=== PATIENT | male | born 1975 | race African-American/Black ===

== ENCOUNTER 2024-11-22 00:05 | Emergency (ER) | payer SELFPAY ==
--- OUTSIDE RECORDS SUMMARY | 2024-11-22 00:13 | XMS REPORT | Continuity of Care Document ---
Author Name Unknown Address [address] [facility] [phone] [facility] [place] Address [address] [facility] [phone] Care Team Providers Care It Software Engineer Name Role Phone MARIAM WOOD Attending Clinician Unavailab le Payers Payer Name Policy Type Policy Number Effective Date Expirati on Date Source [facility] [place] [facility] 9 [id number] 2023 00:00:00 Problems Condition Name Condition Details Condition Category Status Onset Date Resolution Date Last Treatment Date Treating Clinician Comments Source Encounter for screening for diabetes mellitus Encounter for screening for diabetes mellitus Disease Active 05-14 00:00: 00 Belen ocasio Class 3 severe obesity due to excess calories without serious comorbidit y with body mass index (BMI) of 40.0 to 44.9 in adult Class 3 severe obesity due to excess calories without serious comorbidit y with body mass index (BMI) of 40.0 to 44.9 in adult Disease Active 05-14 00:00: 00 Belen ocasio Social History Social Habit Start Date Stop Date Quantity Comments Source Sexual orientation Avinash Duffy - External Alcohol intake 2023-05-14 00:00:00 2023-05-14 00:00:00 Current drinker of alcohol (finding) Belen Duffy - External History of Social function 2023-05-14 00:00:00 2023-05-14 00:00:00 Belen Duffy - External Tobacco Comment 2023-05-14 00:00:00 2023-05-14 00:00:00 1 cigar once a month Belen Duffy - External Alcohol Comment 2023-05-14 00:00:00 2023-05-14 00:00:00 ocassional Belen Olivia Sex Ass[birth year] At 1975 00:00:00 1975 00:[birth year]:00 Belen Andersonjennifer - External Smoking Status Start Date Stop Date Source Never smoked tobacco Belen Duffy - External Medications Ordered Medication Name Filled Medication Name Start Date Stop Date Current Medication? Ordering Clinician Indication Dosage Frequency Signature (SIG) Comments Components Source Amlodipine Besylate (NORVASC) 5 MG oral Tablet 05-14 00:00: 00 Yes [id number] 5mg Take 1 tablet (5 mg total) by mouth daily. Belen Duffy - Externa l Pantoprazol e Sodium 40 MG oral Tablet Delayed Response 05-14 00:00: 00 Yes [id number] 40mg Take 1 tablet (40 mg total) by mouth daily. Belen Thomasa l Immunizations Ordered Immunization Name Filled Immunization Name Date Status Comments Source Td (adult) Unknown Completed Belen carl - External Tdap- (Boostrix, Adacel) Unknown Completed Belen Duffy - External Vital Signs Vital Name Observation Time Observation Value Comments S ource Systolic blood pressure 2023-05-14 17:11:00 148 mm[Hg] Belen kennedy ld - External Diastolic blood pressure 2023-05-14 17:11:00 90 mm[Hg] Belen Munoz ld - External Heart rate 2023-05-14 17:11:00 82 /min Anca Duffy - External Body temperature 2023-05-14 17:11:00 36.5 Cathy Belen Andersonjennifer - External Respiratory rate 2023-05-14 17:11:00 14 /min Belen Duffy - External Body height 2023-05-14 17:11:00 172.7 cm Maddie Duffy - External Body weight 2023-05-14 17:11:00 121.564 kg Maddie Andersonjennifer - External BMI 2023-05-14 17:11:00 40.75 kg/m2 Maddie Andersonold - External Encounters Start Date/Time End Date/Time Encounter Type Admission Type Attending Clinicians Care Facility Care Department Encounter ID Source 2023-07-23 00:00:00 2023-07-23 00:00:00 Outpatient MARIAM WOOD [id number] Belen Duffy 2023-05-14 11:30:00 2023-05-14 11:30:00 Outpatient MARIAM WOOD [id number] Belen Duffy 2022-08-30 08:08:47 2022-08-30 08:08:47 Outpatient [facility] [id number] Nelson Kilpatrick Antonio 2022-08-24 08:10:07 2022-08-24 08:10:07 Outpatient [facility] [id number] Nelson Kilpatrick Antonio 2022-08-23 16:43:16 2022-08-23 16:43:16 Outpatient [facility] [id number] Nelson Alvarez Results Test Description Test Time Test Comments Results Result Co mments Source COMPREHENSIVE METABOLIC [id number] 07:26:43* Test Item Value Reference Range Interpretation Comme nts GLUCOSE (test code = 2217) 104 MG/DL 70-99 H BUN (test code = 2208) 11 MG/DL 6-20 CREATININE (test code = 2214) 1.09 MG/DL 0.80-1.40 eGFR (2020 CKD-EPI) (test code = 50410) 84 ML/MIN/1.73 >60 CALC BUN/CREAT (test code = 2235) 10 RATIO 6-28 SODIUM (test code = 2231) 144 MEQ/L 133-146 POTASSIUM (test code = 2228) 4.4 MEQ/L 3.5-5.4 CHLORIDE (test code = 2215) 106 MEQ/L 95-107 CARBON DIOXIDE (test code = 2206) 27 MEQ/L 19-31 CALCIUM (test code = 2209) 9.4 MG/DL 8.5-10.5 PROTEIN, TOTAL (test code = 2229) 7.3 G/DL 6.1-8.3 ALBUMIN (test code = 2201) 4.3 G/DL 3.5-5.2 CALC GLOBULIN (test code = 2240) 3.0 G/DL 1.9-3.7 CALC A/G RATIO (test code = 2234) 1.4 RATIO 1.0-2.6 BILIRUBIN, TOTAL (test code = 2207) 0.7 MG/DL See_Comment [Automated me ssage] The system which generated this result transmitted reference range: <=1.2. The reference range was not used to interpret this result as normal/abnormal. ALKALINE PHOSPHATASE (test code = 2204) 123 U/L 40-118 H AST (test code = 2218) 27 U/L 9-50 ALT (test code = 2219) 40 U/L 5-50 UNLESS OTHERWISE INDICATED, ALL TESTING PERFORMED AT [facility] [address] [place] [address] PAYMENT SPECIALIST: AMIE TEMPLE M.D. [place] NUMBER [id number] [facility] [place] [id number] HEMOGLOBIN [id number] 05:34:33* Test Item Value Reference Range Interpretation Comme nts HEMOGLOBIN A1c (test code = 49816) 5.8 % 4.2-5.6 H [employer] GUIDELINES FOR HGB A1C: PREDIABETES/INCREASED RISK . . . . . . . 5.7-6.4% DIAGNOSIS OF DIABETES . . . . . . . . . >=6.5% WITH CONFIRMATION OR APPROPRIATE SYMPTOMS NOTE: ASSAY MAY BE AFFECTED BY HEMOGLOBINOPATHIES (SICKLE CELL ANEMIA, S-C DISEASE, OTHERS) OR ARTIFICIALLY LOWERED BY DECREASED RED CELL SURVIVAL (HEMOLYTIC ANEMIAS, BLOOD LOSS, ETC.). CONSIDER ALTERNATE TESTING OR LABORATORY CONSULTATION. Notes Date/Time Note Provider Source 2023-05-14 11:16:31 Chief Complaint Patient presents with Physical Patient is not fasting. Reflux Nargis French MA II [facility]
[2024-11-22] MEDS ORDERED: MORPHINE 4 MG/ML SYR ONE (00:31)
[2024-11-22] MEDS ORDERED: DIPHENHYDRAMINE 50 MG/ML VIAL ONE (00:31)
[2024-11-22] MEDS ORDERED: METOCLOPRAMIDE 10 MG/2mL INJ ONE (00:31)
[2024-11-22] MEDS ORDERED: NA CHLORIDE 0.9% 1,000 ML ONE (00:31)
[2024-11-22 00:42] LABS: Absolute Lymphocytes (CBC) 2.0 K/uL (0.7-4.9); Hematocrit 42.9 % (39.6-49.0); Hemoglobin 14.5 g/dL (13.6-17.9); MCH 29.6 pg (27.0-35.0); MCHC 33.8 g/dL (32.0-36.0); MCV 87.6 fL (80-100); MPV 7.7 fL (7.6-11.3); Nucleated RBC Absolute Count 0.0 (0-0); Nucleated Red Blood Cells % 0.0 % (0-0); RBC Red Blood Cell Count 4.90 M/uL (4.33-5.43); White Blood Count 7.50 thou/uL (4.3-10.9)
[2024-11-22 00:49] LABS: PT Prothrombin Time 12.6 SECONDS (10-13.0); Protime INR 1.12
[2024-11-22 01:30] LABS: ALT/SGPT 36 U/L (16-61); AST/SGOT 18 U/L (15-37); Albumin 3.3 g/dL (3.4-5.0); Albumin/Globulin Ratio 0.8 (1.1-1.8); Alkaline Phosphatase 95 U/L (45-117); Anion Gap 9.9 mEq/L (5.0-15.0); BUN Blood Urea Nitrogen 11 mg/dL (7-18); Globulin 3.9 g/dL (2.3-3.5); Glucose Level 140 mg/dL (74-106); Magnesium 1.8 mg/dL (1.6-2.4); Potassium 2.9 mEq/L (3.5-5.1); Troponin High Sensitivity 12.2 pg/mL (<58.9)
[2024-11-22 01:34] LABS: Bilirubin Indirect, Calculated 0.4 mg/dL (0.2-0.8)
[2024-11-22] MEDS ORDERED: POTASSIUM 25 MEQ EFFERV TAB ONE (03:17)
[2024-11-22] MEDS ORDERED: KETOROLAC 30 MG/ML INJ ONE (03:24)
--- NOTE | 2024-11-22 03:44 | EDPHYS ---
Physician Documentation [facility] Name: Cooper Baez Jr Age: 48 yrs Sex: Male : 1975 Arrival Date: 11/22/2024 Time: 00:05 Bed 18 Private MD: ED Physician Magan Rivas HPI: 11/22 00:25 This 48 yrs old Male presents to ER via Ambulatory with complaints of Headache, High cp Blood Pressure. 00:25 The patient complains of pain to the top of head, forehead, right jehovah's witness and left cp jehovah's witness. The patient describes the headache as aching, constant. Onset: The symptoms/episode began/occurred 1 day(s) ago. Associated signs and symptoms: Pertinent positives: nausea. 00:25 Severity of symptoms: in the emergency department the pain is unchanged, despite home cp interventions. 00:25 Headache History: The patient has had previous headaches and this one is different than cp previous episodes. Historical: - Allergies: 00:19 No Known Allergies; br2 - Home Meds: 00:19 None [Active]; br2 - PSHx: 00:19 None; br2 - Immunization history:: Adult Immunizations not up to date. - Infectious Disease History:: Denies. - Social history:: Smoking status: Patient denies any tobacco usage or history of. ROS: 00:30 Constitutional: Negative for body aches, chills, fever, poor PO intake, cp 00:30 Eyes: Negative for injury, pain, redness, and discharge, cp 00:30 Cardiovascular: Negative for chest pain, edema, palpitations, 00:30 Respiratory: Negative for cough, shortness of breath, wheezing, 00:30 Abdomen/GI: Positive for nausea, Negative for vomiting, diarrhea, constipation, 00:30 Neuro: Positive for headache, Negative for altered mental status, syncope, near syncope, weakness, 00:30 All other systems are negative, cp Exam: 00:30 Head/Face: Normocephalic, atraumatic. cp 00:30 Constitutional: The patient appears in no acute distress, alert, awake, non-diaphoretic, non-toxic, well developed, well nourished, obese, uncomfortable, 00:30 Eyes: Periorbital structures: appear normal, Pupils: equal, round, and reactive to light and accomodation, Extraocular movements: intact throughout, Conjunctiva: normal, no exudate, no injection, Sclera: no appreciated abnormality, Lids and lashes: appear normal, bilaterally, 00:30 ENT: External ear(s): are unremarkable, Nose: External nose: no obvious acute abnormality, Mouth: Lips: moist, Oral mucosa: moist, Posterior pharynx: Airway: no evidence of obstruction, patent, erythema, is not appreciated, exudate, is not appreciated, 00:30 Neck: ROM/movement: is normal, is supple, without pain, no range of motions limitations, 00:30 Chest/axilla: Inspection: normal, Palpation: is normal, no crepitus, no tenderness, 00:30 Cardiovascular: Rate: normal, Rhythm: regular, Edema: is not appreciated, JVD: is not appreciated, 00:30 Respiratory: the patient does not display signs of respiratory distress, Respirations: normal, no use of accessory muscles, no retractions, labored breathing, is not present, Breath sounds: are clear throughout, no decreased breath sounds, no stridor, no wheezing, 00:30 Abdomen/GI: Inspection: obese Palpation: abdomen is soft and non-tender, in all quadrants, 00:33 ECG was reviewed by the Attending Physician. cp Vital Signs: 00:16 BP 169 / 106; Pulse 78; Resp 18 S; Temp 97.1(TE); Pulse Ox 99% on R/A; Weight 108.86 br2 kg; Height 5 ft. 8 in. ; Pain 10/10; 00:18 BP 162 / 96; Pulse 77; Resp 17; Pulse Ox 97% ; Pain 10/10; bm8 01:24 BP 150 / 99; Pulse 74; Resp 17; Temp 97.1; Pulse Ox 95% ; Pain 8/10; bm8 02:51 BP 146 / 101; Pulse 71; Resp 17; Temp 97.1; Pulse Ox 100% ; Pain 3/10; bm8 03:46 BP 142 / 97; Pulse 73; Resp 17; Temp 97.1; Pulse Ox 95% ; Pain 3/10; bm8 00:16 Body Mass Index 36.49 (108.86 kg, 172.72 cm) br2 00:16 Pain Scale: Adult br2 00:18 Pain Scale: Adult bm8 01:24 Pain Scale: Adult bm8 02:51 Pain Scale: Adult bm8 03:46 Pain Scale: Adult bm8 Kings[place] Coma Score: 00:18 Eye Response: spontaneous(4). Motor Response: obeys commands(6). Verbal Response: bm8 oriented(5). Total: 15. 01:24 Eye Response: to voice(3). Motor Response: obeys commands(6). Verbal Response: bm8 oriented(5). Total: 14. 02:51 Eye Response: spontaneous(4). Motor Response: obeys commands(6). Verbal Response: bm8 oriented(5). Total: 15. 03:46 Eye Response: spontaneous(4). Motor Response: obeys commands(6). Verbal Response: bm8 oriented(5). Total: 15. MDM: 00:13 Medical Screening Exam initiated cp 02:41 Transition of care: [place] [facility] [place] Differential diagnosis: hypertensive headache, intracerebral hemorrhage, migraine, ms3 tension headache. Data reviewed: vital signs, nurses notes, lab test result(s), radiologic studies. 03:44 I considered the following discharge prescriptions or medication management in [place] [facility] [place] Medications were administered in the Emergency Department. See MAR. Independent interpretation of the following test(s) in the Emergency Department X-Ray: My interpretation is Chest x-ray image reviewed by me did not reveal pneumonia. Counseling: I had a detailed discussion with the patient and/or guardian regarding the historical points, exam findings, and any diagnostic results supporting the discharge/admit diagnosis, lab results, radiology results, the need for outpatient follow up, to return to the emergency department if symptoms worsen or persist or if there are any questions or concerns that arise at home. Special discussion: I discussed with the patient/guardian in detail that at this point there is no indication for admission to the hospital. It is understood, however, that if the symptoms persist or worsen the patient needs to return immediately for re-evaluation. ED course: Discussed labs, chest x-ray, CT head results with patient. Patient to follow-up with primary care physician in 2 to 3 days. Patient understands and agrees with plan. All questions were answered. Return precautions discussed include worsening symptoms, or any other concerns. On reevaluation patient is alert and oriented x 4, no apparent distress, nontoxic-appearing, speaking full sentences. Patient states his symptoms have improved since arrival to the emergency department.. 08 00:21 Order name: Basic Metabolic Panel; Complete Time: 01:34 cp 08/16 01:34 Interpretation: Normal except: K 2.9; GLUC 140; GFR 82. cp 16 00:21 Order name: CBC with Diff; Complete Time: 01:34 cp 16 00:21 Order name: LFT's; Complete Time: :34 cp 11/22 01:35 Interpretation: Normal except: ALB 3.3; GLOB 3.9; A/G 0.8. cp 08 00:21 Order name: Magnesium; Complete Time: :34 cp 11/22 00:21 Order name: PT-INR; Complete Time: :34 cp 11/22 00:21 Order name: Troponin HS; Complete Time: :34 cp 11/22 00:21 Order name: CT Head Brain wo Cont cp 08 00:21 Order name: XRAY Chest (1 view) cp 11/22 00:21 Order name: Cardiac monitoring; Complete Time: 00:43 cp 11/22 00:21 Order name: EKG - Nurse/Tech; Complete Time: 00:43 cp 11/22 00:21 Order name: IV Saline Lock; Complete Time: 00:43 cp 11/22 00:21 Order name: Labs collected and sent; Complete Time: 00:43 cp 11/22 00:21 Order name: O2 Per Protocol; Complete Time: 00:43 cp 11/22 00:21 Order name: O2 Sat Monitoring; Complete Time: 00:43 cp EC:33 Rate is 63 beats/min. Rhythm is regular. IA interval is prolonged at 222 msec. QRS cp interval is prolonged at 106 msec. QT interval is normal. T waves are Inverted in lead aVR. Interpreted by me. Reviewed by me. Administered Medications: 00:42 Drug: morphine IVP or IV 4 mg IVP once over 4 mins Route: IVP; Infused Over: 4 mins; bm8 Site: left antecubital; Follow up: Response: No adverse reaction bm8 00:43 Drug: NS 0.9% IV 1000 ml IV at 1 bolus Per protocol; to be given as a bolus over 60 bm8 minutes Route: IV; Rate: 1 bolus; Site: left antecubital; 01:26 Follow up: Response: No adverse reaction; IV Status: Completed infusion bm8 00:43 Drug: metoCLOPramide IVP 10 mg IVP once; over 1 to 2 minutes Route: IVP; Site: left bm8 antecubital; 01:26 Follow up: Response: No adverse reaction bm8 00:43 Drug: diphenhydrAMINE IVP 12.5 mg IVP once Route: IVP; Site: left antecubital; bm8 01:26 Follow up: Response: No adverse reaction bm8 01:51 Drug: Lisinopril PO 20 mg PO once Route: PO; bm8 02:52 Follow up: Response: No adverse reaction bm8 03:21 Drug: Potassium PO Effervescent Tablet 50 mEq PO once; dissolve in 4 ounces of water or bm8 juice Route: PO; 03:47 Follow up: Response: No adverse reaction bm8 03:26 Drug: Ketorolac IVP 10 mg 10 mg IVP once Route: IVP; Site: left antecubital; bm8 03:47 Follow up: Response: No adverse reaction bm8 Disposition: 02:16 I was immediately available on-site in the Emergency Department for consultation in the ms3 care of the patient. Disposition Summary: 11/22/24 03:43 Discharge Ordered Notes: Location: Home ms3 Problem: new ms3 Symptoms: have improved ms3 Condition: Stable ms3 Diagnosis - Hypertensive heart disease without heart failure ms3 - Hyperglycemia, unspecified ms3 - Headache ms3 Followup: cp - With: Private Physician - When: 1 week - Reason: Recheck today's complaints Discharge Instructions: - Discharge Summary Sheet cp - High-Fiber Eating Plan cp - Hyperglycemia cp - Hypertension, Adult cp - Aspirin and Your Heart cp - Form - Blood Pressure Record Sheet cp - How to Take Your Blood Pressure cp Forms: - Medication Reconciliation Form ms3 - Antibiotic Education ms3 - Prescription Opioid Use ms3 - Patient Portal Instructions ms3 - Leadership Thank You Letter ms3 Prescriptions: - Lisinopril 10 mg Oral Tablet - take 1 tablet ORAL route once daily; 20 tablet; Refills: 0, Product Selection ms3 Permitted Signatures: Dispatcher [employer] EDW[place] David Monson PA PA cp Sims, Marcus, DO DO ms3 Joseph Anton RN RN bm8 Leah Paula RN RN br2 Corrections: (The following items were deleted from the chart) 00:22 00:22 Head Brain Wo Cont+CT.RAD.BRZ ordered. EDMS EDMS 00: 00:22 BASIC METABOLIC PANEL+C.LAB.BRZ ordered. EDMS EDMS 00: 00:22 CBC+H.LAB.BRZ ordered. EDMS EDMS 00: 00:22 HEPATIC FUNCTION+C.LAB.BRZ ordered. EDMS EDMS 00: 00:22 MAGNESIUM+C.LAB.BRZ ordered. EDMS EDMS 00: 00:22 PROTIME (+INR)+COAG.LAB.BRZ ordered. EDMS EDMS 00: 00:22 Troponin High Sensitivity+C.LAB.BRZ ordered. EDMS EDMS 00: 00:22 Chest Single View+RAD.RAD.BRZ ordered. EDMS EDMS
--- NOTE | 2024-11-22 03:44 | ER ---
Nurse's Notes [facility] Name: Cooper Baez Jr Age: 48 yrs Sex: Male : 1975 Arrival Date: 11/22/2024 Time: 00:05 Bed 18 Private MD: Diagnosis: Hypertensive heart disease without heart failure;Hyperglycemia, unspecified;Headache Presentation: 11/22 00:16 Chief complaint: Patient states: PT C/O MIGRAINE SINCE YESTERDAY FRONTAL AREA...BLURRED br2 VISION, NAUSEA, DIZZY, CONSTANT. PT TOOK IBUPROFEN 600MG AT 1630 BUT DIDN'T HELP. PT HAS HTN BUT HASN'T TAKEN MEDS IN OVER 1 YEAR. Coronavirus screen: Client denies travel out of the [place] in the last 14 days. Ebola Screen: Patient denies exposure to infectious person. 00:16 Method Of Arrival: Ambulatory br2 00:16 Initial Sepsis Screen: Does the patient meet any 2 criteria? No. Patient's initial br2 sepsis screen is negative. Does the patient have a suspected source of infection? No. Patient's initial sepsis screen is negative. Risk Assessment: Do you want to hurt yourself or someone else? Patient reports no desire to harm self or others. Onset of symptoms was November 21, 2024. 00:16 Acuity: KRISTAN 3 br2 Triage Assessment: 00:19 Headache History: Denies prior headaches. General: Appears uncomfortable, Behavior is br2 calm, cooperative. Pain: Complains of pain in top of head and forehead Pain currently is 10 out of 10 on a pain scale. Pain began 1 day ago. Also complains of nausea, BLURRED VISION AND DIZZINESS. 00:20 Headache History: Denies prior headaches. General: Appears in no apparent distress. bm8 uncomfortable, Behavior is calm, cooperative, appropriate for age. Pain: Complains of pain in top of head, forehead and left side of forehead Pain currently is 10 out of 10 on a pain scale. Pain began 1 day ago. Also complains of decreased appetite, nausea, inability to work, inability to perform activities of daily living, inability to concentrate. EENT: No deficits noted. No signs and/or symptoms were reported regarding the EENT system. Neuro: Level of Consciousness is awake, alert, obeys commands, Oriented to person, place, time, situation, Appropriate for age. Cardiovascular: Denies chest pain, Capillary refill < 3 seconds in bilateral fingers Patient's skin is warm and dry. Cardiovascular: Heart tones S1 S2 present. Respiratory: Airway is patent Respiratory effort is even, unlabored, Respiratory pattern is regular, symmetrical, Breath sounds are clear bilaterally. GI: No signs and/or symptoms were reported involving the gastrointestinal system. : No signs and/or symptoms were reported regarding the genitourinary system. Derm: No signs and/or symptoms reported regarding the dermatologic system. Musculoskeletal: No signs and/or symptoms reported regarding the musculoskeletal system. Historical: - Allergies: 00:19 No Known Allergies; br2 - Home Meds: 00:19 None [Active]; br2 - PSHx: 00:19 None; br2 - Immunization history:: Adult Immunizations not up to date. - Infectious Disease History:: Denies. - Social history:: Smoking status: Patient denies any tobacco usage or history of. Screenin:18 [facility] ED Fall Risk Assessment (Adult) History of falling in the last 3 months, bm8 including since admission No falls in past 3 months (0 pts) Confusion or Disorientation No (0 pts) Intoxicated or Sedated No (0 pts) Impaired Gait No (0 pts) Mobility Assist Device Used No (0 pt) Altered Elimination No (0 pt) Score/Fall Risk Level 0 - 2 = Low Risk Oriented to surroundings, Maintained a safe environment, Educated pt \T\ family on fall prevention, incl call for assistance when getting out of bed, Assessed \T\ reinforced patient's understanding of fall precautions, Hourly rounding (assess needs \T\ fall precautionary measures) done, Used ambulatory aids as needed (educated on \T\ assisted with), Used gait belt as appropriate. Abuse screen: Denies threats or abuse. Nutritional screening: No deficits noted. Tuberculosis screening: No symptoms or risk factors identified. Assessment: 01:24 Reassessment: Patient appears in no apparent distress at this time. Patient and/or bm8 family updated on plan of care and expected duration. Pain level reassessed. Patient is alert, oriented x 3, equal unlabored respirations, skin warm/dry/pink. Patient states feeling better. Patient states symptoms have improved. Reassessment: pt is resting with eyes closed breathing is even unlabored with symmetrical rise and fall of chest. NAD at this time. pt is easy to waken. Pain: Pain currently is 8 out of 10 on a pain scale. 02:51 Reassessment: Patient appears in no apparent distress at this time. Patient and/or bm8 family updated on plan of care and expected duration. Pain level reassessed. Patient is alert, oriented x 3, equal unlabored respirations, skin warm/dry/pink. Patient states feeling better. Patient states symptoms have improved. Pain: Pain currently is 3 out of 10 on a pain scale. 03:46 Reassessment: Patient appears in no apparent distress at this time. Patient and/or bm8 family updated on plan of care and expected duration. Pain level reassessed. Patient is alert, oriented x 3, equal unlabored respirations, skin warm/dry/pink. Patient states feeling better. Patient states symptoms have improved. Vital Signs: 00:16 BP 169 / 106; Pulse 78; Resp 18 S; Temp 97.1(TE); Pulse Ox 99% on R/A; Weight 108.86 br2 kg; Height 5 ft. 8 in. ; Pain 10/10; 00:18 BP 162 / 96; Pulse 77; Resp 17; Pulse Ox 97% ; Pain 10/10; bm8 01:24 BP 150 / 99; Pulse 74; Resp 17; Temp 97.1; Pulse Ox 95% ; Pain 8/10; bm8 02:51 BP 146 / 101; Pulse 71; Resp 17; Temp 97.1; Pulse Ox 100% ; Pain 3/10; bm8 03:46 BP 142 / 97; Pulse 73; Resp 17; Temp 97.1; Pulse Ox 95% ; Pain 3/10; bm8 00:16 Body Mass Index 36.49 (108.86 kg, 172.72 cm) br2 00:16 Pain Scale: Adult br2 00:18 Pain Scale: Adult bm8 01:24 Pain Scale: Adult bm8 02:51 Pain Scale: Adult bm8 03:46 Pain Scale: Adult bm8 Yasmin Coma Score: 00:18 Eye Response: spontaneous(4). Motor Response: obeys commands(6). Verbal Response: bm8 oriented(5). Total: 15. 01:24 Eye Response: to voice(3). Motor Response: obeys commands(6). Verbal Response: bm8 oriented(5). Total: 14. 02:51 Eye Response: spontaneous(4). Motor Response: obeys commands(6). Verbal Response: bm8 oriented(5). Total: 15. 03:46 Eye Response: spontaneous(4). Motor Response: obeys commands(6). Verbal Response: bm8 oriented(5). Total: 15. ED Course: 00:09 Patient arrived in ED. jj6 00:13 Joseph Anton, RN is Primary Nurse. bm8 00:13 David Monson PA is PHCP. cp 00:13 Magan Rivas DO is Attending Physician. cp 00:18 Patient has correct armband on for positive identification. Bed in low position. Call bm8 light in reach. Side rails up X 1. Adult w/ patient. Client placed on continuous cardiac and pulse oximetry monitoring. NIBP monitoring applied. Pulse ox on. NIBP on. Door closed. Noise minimized. Verbal reassurance given. Head of bed elevated. 00:18 No provider procedures requiring assistance completed. Patient maintains SpO2 bm8 saturation greater than 95% on room air. 00:19 Triage completed. br2 00:20 Arm band placed on right wrist. bm8 00:37 Initial lab(s) drawn, by me, sent to lab. Inserted saline lock: 20 gauge in left zm antecubital area, using aseptic technique. Blood collected. Flushed with 10 mL NS. 01:07 CT Head Brain wo Cont In Process Unspecified. EDMS 02:31 XRAY Chest (1 view) In Process Unspecified. EDMS 03:46 Provided Education on: post er care. bm8 03:46 IV discontinued, intact, bleeding controlled, No redness/swelling at site. Pressure bm8 dressing applied. Administered Medications: 00:42 Drug: morphine IVP or IV 4 mg IVP once over 4 mins Route: IVP; Infused Over: 4 mins; bm8 Site: left antecubital; : Follow up: Response: No adverse reaction bm8 00:43 Drug: NS 0.9% IV 1000 ml IV at 1 bolus Per protocol; to be given as a bolus over 60 bm8 minutes Route: IV; Rate: 1 bolus; Site: left antecubital; : Follow up: Response: No adverse reaction; IV Status: Completed infusion bm8 00:43 Drug: metoCLOPramide IVP 10 mg IVP once; over 1 to 2 minutes Route: IVP; Site: left bm8 antecubital; 01:26 Follow up: Response: No adverse reaction bm8 00:43 Drug: diphenhydrAMINE IVP 12.5 mg IVP once Route: IVP; Site: left antecubital; bm8 01:26 Follow up: Response: No adverse reaction bm8 01:51 Drug: Lisinopril PO 20 mg PO once Route: PO; bm8 02:52 Follow up: Response: No adverse reaction bm8 03:21 Drug: Potassium PO Effervescent Tablet 50 mEq PO once; dissolve in 4 ounces of water or bm8 juice Route: PO; 03:47 Follow up: Response: No adverse reaction bm8 03:26 Drug: Ketorolac IVP 10 mg 10 mg IVP once Route: IVP; Site: left antecubital; bm8 03:47 Follow up: Response: No adverse reaction bm8 Medication: 00:18 VIS not applicable for this client. bm8 Outcome: 03:43 Discharge ordered by . ms3 03:46 Discharged to home ambulatory, with family, bm8 03:46 Condition: stable 03:46 Discharge instructions given to patient, family, Instructed on discharge instructions, follow up and referral plans. no drinking with medication, no driving heavy equipment, medication usage, safety practices, Demonstrated understanding of instructions, follow-up care, medications, 03:48 Prescriptions given X 1, bm8 03:55 Patient left the ED. bm8 Signatures: Dispatcher [employer] EDMS David Monson PA PA cp Sims, Marcus, DO DO ms3 Alisa Olmedo jj6 Larissa Mccoy, RN RN Joseph Anton RN RN bm8 Leah Paula RN RN br2
--- NOTE | 2024-11-22 05:39 | RAD REPORT ---
EXAM DESCRIPTION: CT of the head without contrast CLINICAL HISTORY: HEADACHE COMPARISON: None available TECHNIQUE: Axial CT of the head obtained from the skull apex to the skull base without contrast. This exam was performed according to our departmental dose-optimization program, which includes automated exposure control, adjustment of the mA and/or kV according to patient size and/or use of it erative reconstruction technique. FINDINGS: No acute intracranial hemorrhage identified. No mass, mass effect, midline shift, or abnormal extra-a xial fluid collection. No CT evidence of acute ischemic change identified, however, MRI is more sensitive in the assessment of acute ischemia. Ventricular system and sulcal spaces are normal in s ize and morphology. Basilar cisterns are patent. Visualized orbits and globes show no acute abnormality. No skull fracture identified. Opacificati on of the left sphenoid sinus. Patchy mucosal thickening involving the ethmoid air cells, left greater than right. Minimal mucosal thickening in the right frontal sinus. Mastoid air cells are well aerated. IMPRESSION: 1. No acute intracranial abnormality on noncontrast CT. 2. Paranasal sinus disease. Electronically signed by: Nilda Panchal MD 11/22/2024 02:50 AM CDT RP Due to temporary technical issues with the PACS/[employer] reporting system, reports are being maday d by the in-house radiologist without review as a courtesy to ensure prompt reporting the interpreting radiologist is fully responsible for the content of the report. Transcribed Date/Time: 11/22/2024 5:38 AM
--- NOTE | 2024-11-22 05:55 | RAD REPORT ---
EXAM DESCRIPTION: Chest Single View CLINICAL HISTORY: htn, headache COMPARISON: None. FINDINGS: 1 view(s) of the chest. Tubes and lines: Leads overlie the chest. Cardiomediastinal silhouette: Normal size and contour. Lungs: No consolidation, pneumothorax, or pleural effusion. Bones: No acute osseous abnormality. Upper abdomen: No abnormality identified. IMPRESSION: 1. No acute pulmonary process identified. Electronically signed by: Willy Solomon DO 11/22/2024 03:36 AM CDT 4ZDM Due to temporary technical issues with the PACS/[employer] reporting system, reports are being maday d by the in-house radiologist without review as a courtesy to ensure prompt reporting the interpreting radiologist is fully responsible for the content of the report. Transcribed Date/Time: 11/22/2024 5:54 AM
[2024-11-22 09:32] VITALS: TEMP 97.1
[2024-11-22 09:38] VITALS: BP 142/97; O2SAT 95
== END 2024-11-22 03:55 | disposition home or self-care (01) ==
LOC: ER 00:05
DX: I11.9 Hypertensive heart disease without heart failure (principal); R73.9 Hyperglycemia, unspecified
CPT/HCPCS: 36415; 70450; 71045; 80048; 80076; 83735; 84484; 85025; 85610; 93005; 96361; 96374; 96375; 99284; J1200; J2765; J7030

== ENCOUNTER 2024-11-22 15:04 | Emergency (ER) | payer SELFPAY ==
--- OUTSIDE RECORDS SUMMARY | 2024-11-22 15:07 | XMS REPORT | Continuity of Care Document ---
Author Name Unknown Address [address] [place] [address] [facility] Address [address] [place] [address] Care Team Providers Care Trainman Name Role Phone MARIAM WOOD Attending Clinician Unavailab le Payers Payer Name Policy Type Policy Number Effective Date Expirati on Date Source [facility] [employer] [place] [employer] 9 [id number] 2023 00:00:00 Problems Condition Name Condition Details [...] Assigned At 1975 00:00:00 1975 00:00:00 Belen Duffy - External Smoking Status Start Date Stop Date Source Never smoked tobacco Belen Duffy - External Medications Ordered Medication Name Filled Medication Name Start Date Stop Date Current Medication? Ordering Clinician Indication Dosage Frequency Signature (SIG) Comments Components Source Amlodipine Besylate (NORVASC) 5 MG oral Tablet 05-14 00:00: 00 Yes [id number] 5mg Take 1 tablet (5 mg total) by mouth daily. Belen Duffy - Externa l Pantoprazol e Sodium 40 MG oral Tablet Delayed Response 05-14 00:00: 00 Yes [id number] 40mg Take 1 tablet (40 mg total) by mouth daily. Belen Rivers Externa l Immunizations Ordered Immunization Name Filled Immunization Name Date Status Comments Source Td (adult) Unknown Completed Belen carl - External Tdap- (Boostrix, Adacel) Unknown Completed Belen Duffy - External Vital Signs Vital Name Observation Time Observation Value Comments S ource Systolic blood pressure 2023-05-14 17:11:00 148 mm[Hg] Belen Munoz ld - External Diastolic blood pressure 2023-05-14 17:11:00 90 mm[Hg] Belen Munoz ld - External Heart rate 2023-05-14 17:11:00 82 /min Anca Duffy - External Body temperature 2023-05-14 17:11:00 36.5 Cathy Belen Duffy - External Respiratory rate 2023-05-14 17:11:00 14 /min Belen Duffy - External Body height 2023-05-14 17:11:00 172.7 cm Maddie Duffy - External Body weight 2023-05-14 17:11:00 121.564 kg Maddie Andersonjennifer - External BMI 2023-05-14 17:11:00 40.75 kg/m2 Maddie Andersonjennifer - External Encounters Start Date/Time End Date/Time Encounter Type Ad[facility] Encounter ID Source 2023-07-23 00:00:00 2023-07-23 00:00:00 Outpatient MARIAM WOOD [id number] Belen Duffy 2023-05-14 11:30:00 2023-05-14 11:30:00 Outpatient MARIAM WOOD [id number] Belen Duffy 2022-08-30 08:08:47 2022-08-30 08:08:47 Outpatient SFA SFA [id number] Nelson Kilpatrick [place] 2022-08-24 08:10:07 2022-08-24 08:10:07 Outpatient SFA SFA [id number] Nelson Kilpatrick [place] 2022-08-23 16:43:16 2022-08-23 16:43:16 Outpatient SFA SFA [id number] Nelson Alvarez Results Test Description Test Time Test Comments Results Result Co mments Source COMPREHENSIVE METABOLIC [id number] 07:26:43* Test Item Value Reference Range Interpretation Comme nts GLUCOSE (test code = 2217) 104 MG/DL 70-99 H BUN (test code = 2208) 11 MG/DL 6-20 CREATININE (test code = 2214) 1.09 MG/DL 0.80-1.40 eGFR (2020 CKD-EPI) (test code = 60951) 84 ML/MIN/1.73 >60 CALC BUN/CREAT (test code [...] INDICATED, ALL TESTING PERFORMED AT [facility] [address] [place] [address] ADMISSIONS NURSE: AMIE TEMPLE M.D. CLIA NUMBER [id number] [facility] [place]. [id number] HEMOGLOBIN [id number] 05:34:33* Test Item Value Reference Range Interpretation Comme nts HEMOGLOBIN A1c (test code = 16000) 5.8 % 4.2-5.6 H CITIZEN OF [employer] GUIDELINES FOR HGB A1C: [...] not fasting. Reflux Nargis French MA II [facility]
[2024-11-22] MEDS ORDERED: ONDANSETRON 4 MG/2 ML VIAL ONE (15:56)
[2024-11-22] MEDS ORDERED: HYDROMORPHONE HCL 1 MG/ML INJ ONE (15:56)
[2024-11-22] MEDS ORDERED: LIDOCAINE 2% W/EPI 1:200,000 MPF 20 ML VIAL IM ONE (16:05)
[2024-11-22 16:15] LABS: Absolute Lymphocytes (CBC) 1.6 K/uL (0.7-4.9); Hematocrit 41.9 % (39.6-49.0); Hemoglobin 14.2 g/dL (13.6-17.9); MCH 29.7 pg (27.0-35.0); MCHC 33.9 g/dL (32.0-36.0); MCV 87.8 fL (80-100); MPV 7.7 fL (7.6-11.3); Nucleated RBC Absolute Count 0.0 (0-0); Nucleated Red Blood Cells % 0.1 % (0-0); RBC Red Blood Cell Count 4.77 M/uL (4.33-5.43); White Blood Count 9.70 thou/uL (4.3-10.9)
[2024-11-22 16:36] LABS: ALT/SGPT 33.0 U/L (16-61); AST/SGOT 18.0 U/L (15-37); Albumin 3.4 g/dL (3.4-5.0); Albumin/Globulin Ratio 0.9 (1.1-1.8); Alkaline Phosphatase 98.0 U/L (45-117); Anion Gap 9.8 mEq/L (5.0-15.0); BUN Blood Urea Nitrogen 10.0 mg/dL (7-18); Globulin 3.8 g/dL (2.3-3.5); Glucose Level 128.0 mg/dL (74-106); Potassium 2.8 mEq/L (3.5-5.1)
[2024-11-22] MEDS ORDERED: KETOROLAC 30 MG/ML INJ ONE (17:29)
[2024-11-22 18:28] LABS: Color of Supernate Not Xanthochromic (Not Xantho); Color of fluid Colorless (COLORLESS)
[2024-11-22 18:29] LABS: Color of Supernate Not Xanthochromic (Not Xantho); Color of fluid Colorless (COLORLESS)
[2024-11-22] MEDS ORDERED: POTASSIUM CL SA 10 MEQ TAB PO ONE (18:37)
--- NOTE | 2024-11-22 18:43 | ER ---
Nurse's Notes [facility] Name: Cooper Baez Jr Age: 48 yrs Sex: Male : 1975 Arrival Date: 11/22/2024 Time: 15:04 Bed 13 Private MD: Diagnosis: Hypertensive headache, hypertension, lumbar puncture Presentation: 11/22 15:19 Chief complaint: Patient states: C/O severe SIMMONS that began last night. Patient was seen ar8 in ED last night and rx'd lisinopril. Patient states that he has not had any relief from pain. Coronavirus screen: At this time, the client does not indicate any symptoms associated with coronavirus-19. Ebola Screen: No symptoms or risks identified at this time. Initial Sepsis Screen: Does the patient meet any 2 criteria? No. Patient's initial sepsis screen is negative. Does the patient have a suspected source of infection? No. Patient's initial sepsis screen is negative. Risk Assessment: Do you want to hurt yourself or someone else? Patient reports no desire to harm self or others. Onset of symptoms was November 21, 2024. 15:19 Method Of Arrival: Ambulatory ar8 15:19 Acuity: KRISTAN 3 ar8 Triage Assessment: 15:22 Headache History: The patient has had previous headaches and this one is similar to ar8 previous episodes. General: Appears uncomfortable, Behavior is cooperative. Pain: Complains of pain in frontal headache Pain currently is 10 out of 10 on a pain scale. Pain began 1 day ago. Also complains of nausea. Neuro: No deficits noted. Level of Consciousness is awake, alert, obeys commands, Oriented to person, place, time, situation. Historical: - Allergies: 15:22 No Known Allergies; ar8 - Home Meds: 15:22 None [Active]; ar8 - PMHx: 15:22 Hypertensive disorder; ar8 - PSHx: 15:22 None; ar8 - Immunization history:: Adult Immunizations up to date, Adult Immunizations not up to date. - Infectious Disease History:: Denies. Denies. - Social history:: Smoking status: Patient reports the use of cigarette tobacco products, cigars. Screenin:00 [facility] ED Fall Risk Assessment (Adult) History of falling in the last 3 months, kc6 including since admission No falls in past 3 months (0 pts) Confusion or Disorientation No (0 pts) Intoxicated or Sedated No (0 pts) Impaired Gait No (0 pts) Mobility Assist Device Used No (0 pt) Altered Elimination No (0 pt) Score/Fall Risk Level 0 - 2 = Low Risk Oriented to surroundings. Abuse screen: Denies threats or abuse. Denies injuries from another. Nutritional screening: No deficits noted. Tuberculosis screening: No symptoms or risk factors identified. Assessment: 16:00 General: Appears in no apparent distress. uncomfortable, obese, well groomed, well kc6 developed, Behavior is calm, cooperative, appropriate for age, quiet. Pain: Complains of pain in top of head and forehead Quality of pain is described as throbbing, Pain began 2-3 days ago. Is continuous. Neuro: Level of Consciousness is awake, alert, obeys commands, Oriented to person, place, time, situation, Appropriate for age Reports headache frontal area, that is the "worst ever", Denies blurred vision dizziness. Cardiovascular: Capillary refill < 3 seconds. Respiratory: Airway is patent Trachea midline Respiratory effort is even, unlabored, Respiratory pattern is regular, symmetrical. GI: No signs and/or symptoms were reported involving the gastrointestinal system. : No signs and/or symptoms were reported regarding the genitourinary system. EENT: No signs and/or symptoms were reported regarding the EENT system. Derm: No signs and/or symptoms reported regarding the dermatologic system. Skin is intact, is healthy with good turgor, Skin is pink, warm \\T\\ dry. Musculoskeletal: No signs and/or symptoms reported regarding the musculoskeletal system. Circulation, motion, and sensation intact. Range of motion: intact in all extremities. 17:00 Reassessment: Patient appears in no apparent distress at this time. No changes from kc6 previously documented assessment. Patient and/or family updated on plan of care and expected duration. Pain level reassessed. Patient is alert, oriented x 3, equal unlabored respirations, skin warm/dry/pink. 17:28 Reassessment: Patient states symptoms have not improved. kc6 18:20 Reassessment: Patient appears in no apparent distress at this time. No changes from kc6 previously documented assessment. Patient and/or family updated on plan of care and expected duration. Pain level reassessed. Patient is alert, oriented x 3, equal unlabored respirations, skin warm/dry/pink. 18:44 Reassessment: Patient states feeling better. Patient states symptoms have improved. kc6 Vital Signs: 15:19 BP 156 / 90; Pulse 80; Resp 20; Temp 97.6; Pulse Ox 95% on R/A; Weight 104.33 kg; ar8 Height 5 ft. 8 in. ; Pain 10/10; 16:33 BP 151 / 90; Pulse 72; Resp 16 S; Pulse Ox 97% on R/A; kc6 17:30 BP 173 / 96; Pulse 63; Resp 18 S; Pulse Ox 93% ; kc6 18:44 Pain 1/10; kc6 15:19 Body Mass Index 34.97 (104.33 kg, 172.72 cm) ar8 15:19 Pain Scale: Adult ar8 18:44 Pain Scale: Adult kc6 ED Course: 15:07 Patient arrived in ED. ts1 15:15 David Monson PA is PHCP. cp 15:15 Stephanie Toro MD is Attending Physician. cp 15:22 Triage completed. ar8 15:22 Arm band placed on left wrist. ar8 15:33 Deann Lewis, JOO is Primary Nurse. kc6 16:00 Patient has correct armband on for positive identification. Placed in gown. Bed in low kc6 position. Call light in reach. Side rails up X 1. Adult w/ patient. Pulse ox on. NIBP on. Door closed. Noise minimized. Lights dimmed. Warm blanket given. Pillow given. Cool cloth applied. Verbal reassurance given. 16:00 Initial lab(s) drawn, by me, sent to lab. Inserted saline lock: 20 gauge in right kc6 antecubital area, using aseptic technique. Blood collected. Flushed with 10 mL NS. Patient maintains SpO2 saturation greater than 95% on room air. 16:26 Assist provider with lumbar puncture: Set up LP tray. Performed by Stephanie Toro MD CSF kc6 is clear. Sample collected. Sample sent to lab. Puncture site dressed with band aid, 4X4s, Procedure was successful. Patient tolerated well. 17:26 Patient requests pain medication. kc6 17:26 Head of bed elevated. kc6 18:43 Ric Baker MD is Referral Physician. sp3 18:43 Long Aggarwal MD is Referral Physician. sp3 18:51 IV discontinued, intact, bleeding controlled, No redness/swelling at site. Pressure kc6 dressing applied. Administered Medications: 16:11 Drug: Ondansetron IVP 4 mg IVP once; over 2 minutes Route: IVP; Site: right antecubital;kc6 16:53 Follow up: Response: No adverse reaction kc6 16:11 Drug: HYDROmorphone IVP 1 mg IVP once Route: IVP; Site: right antecubital; kc6 16:53 Follow up: Response: No adverse reaction; Pain is decreased; RASS: Alert and Calm (0) kc6 17:43 Drug: Ketorolac IVP 30 mg IVP once Route: IVP; Site: right antecubital; kc6 18:20 Follow up: Response: No adverse reaction kc6 18:44 Drug: Potassium Chloride PO 40 mEq PO once Route: PO; kc6 18:50 Follow up: Response: No adverse reaction kc6 Medication: 18:51 VIS not applicable for this client. kc6 Outcome: 18:43 Discharge ordered by . sp3 18:51 Discharged to home ambulatory, with family, kc6 18:51 Condition: improved 18:51 Discharge instructions given to patient, Instructed on discharge instructions, follow up and referral plans. no drinking with medication, no driving heavy equipment, medication usage, Demonstrated understanding of instructions, follow-up care, medications, Prescriptions given X 2, 18:51 Patient left the ED. kc6 Signatures: David Monson PA PA cp Patel, Setul, MD MD sp3 Deann Lewis RN RN kc6 Rema Veras PAS PAS ts1 Mo Mendez RN RN ar8
--- NOTE | 2024-11-22 18:43 | EDPHYS ---
Physician Documentation [facility] Name: Cooper Baez Jr Age: 48 yrs Sex: Male : 1975 Arrival Date: 11/22/2024 Time: 15:04 Bed 13 Private MD: ED Physician Stephanie Toro HPI: 11/22 16:05 This 48 yrs old Black Male presents to ER via Ambulatory with complaints of Headache. sp3 16:05 48-year-old male with history of hypertension presents with continued headache since sp3 yesterday. Patient was seen yesterday here in this ED and received CT scan of the head and full cardiac workup which was all negative. His headache had improved and he was discharged home. Since then his headache is returned which she is saying is worse now. He denies any new injury or any other new symptoms. No neurological complaints. ROS otherwise negative.. Historical: - Allergies: 15:22 No Known Allergies; ar8 - Home Meds: 15:22 None [Active]; ar8 - PMHx: 15:22 Hypertensive disorder; ar8 - PSHx: 15:22 None; ar8 - Immunization history:: Adult Immunizations up to date, Adult Immunizations not up to date. - Infectious Disease History:: Denies. Denies. - Social history:: Smoking status: Patient reports the use of cigarette tobacco products, cigars. ROS: 16:06 Constitutional: Negative for fever, chills, and weight loss, Eyes: Negative for injury, sp3 pain, redness, and discharge, ENT: Negative for injury, pain, and discharge, Neck: Negative for injury, pain, and swelling, Cardiovascular: Negative for chest pain, palpitations, and edema, Respiratory: Negative for shortness of breath, cough, wheezing, and pleuritic chest pain, Abdomen/GI: Negative for abdominal pain, nausea, vomiting, diarrhea, and constipation, Back: Negative for injury and pain, MS/Extremity: Negative for injury and deformity, Skin: Negative for injury, rash, and discoloration, Psych: Negative for depression, anxiety, suicide ideation, homicidal ideation, and hallucinations, Allergy/Immunology: Negative for hives, rash, and allergies, Endocrine: Negative for neck swelling, polydipsia, polyuria, polyphagia, and marked weight changes, Hematologic/Lymphatic: Negative for swollen nodes, abnormal bleeding, and unusual bruising, 16:06 All other systems are negative, Exam: 16:06 Constitutional: This is a well developed, well nourished patient who is awake, alert, sp3 and in no acute distress. Head/Face: Normocephalic, atraumatic. ENT: Nares patent. No nasal discharge, no septal abnormalities noted. External auditory canals are clear. Oropharynx with no redness, swelling, or masses, exudates, or evidence of obstruction, uvula midline. Mucous membranes moist. Neck: Trachea midline, no thyromegaly or masses palpated, and no cervical lymphadenopathy. Supple, full range of motion without nuchal rigidity, or vertebral point tenderness. No Meningismus. Chest/axilla: Normal chest wall appearance and motion. Nontender with no deformity. No lesions are appreciated. Cardiovascular: Regular rate and rhythm with a normal S1 and S2. No gallops, murmurs, or rubs. Normal PMI, no JVD. No pulse deficits. Respiratory: Lungs have equal breath sounds bilaterally, clear to auscultation and percussion. No rales, rhonchi or wheezes noted. No increased work of breathing, no retractions or nasal flaring. Abdomen/GI: Soft, non-tender, with normal bowel sounds. No distension or tympany. No guarding or rebound. No evidence of tenderness throughout. Back: No spinal tenderness. No costovertebral tenderness. Full range of motion. Skin: Warm, dry with normal turgor. Normal color with no rashes, no lesions, and no evidence of cellulitis. MS/ Extremity: Pulses equal, no cyanosis. Neurovascular intact. Full, normal range of motion. Neuro: Awake and alert, GCS 15, oriented to person, place, time, and situation. Cranial nerves II-XII grossly intact. Motor strength 5/5 in all extremities. Sensory grossly intact. Cerebellar exam normal. Normal gait. Psych: Awake, alert, with orientation to person, place and time. Behavior, mood, and affect are within normal limits. 16:06 Eyes: Mild photophobia noted.. Vital Signs: 15:19 BP 156 / 90; Pulse 80; Resp 20; Temp 97.6; Pulse Ox 95% on R/A; Weight 104.33 kg; ar8 Height 5 ft. 8 in. ; Pain 10/10; 16:33 BP 151 / 90; Pulse 72; Resp 16 S; Pulse Ox 97% on R/A; kc6 17:30 BP 173 / 96; Pulse 63; Resp 18 S; Pulse Ox 93% ; kc6 18:44 Pain 1/10; kc6 15:19 Body Mass Index 34.97 (104.33 kg, 172.72 cm) ar8 15:19 Pain Scale: Adult ar8 18:44 Pain Scale: Adult kc6 Procedures: 16:34 Lumbar Puncture: Patient placed in sitting position. Prepped with Betadine. Draped sp3 using sterile technique. Collected 8 ml's of clear fluid. Puncture site dressed with 4x4s, Patient tolerated well. MDM: 15:31 Medical Screening Exam initiated sp3 16:07 Data reviewed: vital signs, nurses notes, lab test result(s). ED course: 48-year-old sp3 male with continued headache since yesterday. I reviewed the workup from yesterday and we will only repeat routine labs. Differential diagnosis includes idiopathic headache, hypertensive headache, other intracranial pathology including slow bleed. We will obtain lumbar puncture to analyze CSF. Dilaudid and Zofran for symptomatic control. Vital signs are normal. Disposition pending workup and patient course.. 16:34 ED course: Lumbar puncture completed without complication by me. Awaiting lab results sp3 and patient resting comfortably. Pain is improved after Dilaudid.. 18:41 ED course: To 4 RBC at 1 cell per high-powered field. WBC is negative. Gram stain sp3 negative. Glucose normal. Protein borderline abnormal. And not concerned about meningitis or subarachnoid hemorrhage at this point. Patient feeling better after ketorolac. He is asking for similar medication to be discharged home with. Patient feeling significantly better after the ketorolac. We will safely discharge him home on NSAID and follow-up with neurology.. 11/22 15:42 Order name: CBC with Diff; Complete Time: 17:26 sp3 11/22 15:42 Order name: CMP; Complete Time: 17:26 sp3 11/22 15:42 Order name: CSF Cell Count: Tube 1; Complete Time: 18:29 sp3 11/22 15:42 Order name: Csf Glucose; Complete Time: 17:26 sp3 11/22 15:42 Order name: Csf Total Protein; Complete Time: 17:26 sp3 11/22 17:04 Order name: Body Fluid Cell Count; Complete Time: 18:33 EDMS 11/22 17:04 Order name: CSF Culture EDMS 11/22 15:42 Order name: IV Saline Lock; Complete Time: 16:11 sp3 11/22 15:42 Order name: Labs collected and sent; Complete Time: 16:11 sp3 11/22 15:42 Order name: NPO; Complete Time: 15:44 sp3 11/22 15:42 Order name: Lumbar Puncture Consent; Complete Time: 15:44 sp3 11/22 15:42 Order name: Lumbar Puncture Setup; Complete Time: 15:44 sp3 Administered Medications: 16:11 Drug: Ondansetron IVP 4 mg IVP once; over 2 minutes Route: IVP; Site: right antecubital;kc6 16:53 Follow up: Response: No adverse reaction kc6 16:11 Drug: HYDROmorphone IVP 1 mg IVP once Route: IVP; Site: right antecubital; kc6 16:53 Follow up: Response: No adverse reaction; Pain is decreased; RASS: Alert and Calm (0) kc6 17:43 Drug: Ketorolac IVP 30 mg IVP once Route: IVP; Site: right antecubital; kc6 18:20 Follow up: Response: No adverse reaction kc6 18:44 Drug: Potassium Chloride PO 40 mEq PO once Route: PO; kc6 18:50 Follow up: Response: No adverse reaction kc6 Disposition Summary: 11/22/24 18:43 Discharge Ordered Notes: Location: Home sp3 Condition: Stable sp3 Diagnosis - Hypertensive headache, hypertension, lumbar puncture sp3 Followup: sp3 - With: Ric Baker MD - When: Upon discharge from the Emergency Department - Reason: Recheck today's complaints Followup: sp3 - With: Long Aggarwal MD - When: Upon discharge from the Emergency Department - Reason: Recheck today's complaints Discharge Instructions: - Discharge Summary Sheet sp3 - General Headache Without Cause sp3 Forms: - Medication Reconciliation Form sp3 - Antibiotic Education sp3 - Prescription Opioid Use sp3 - Patient Portal Instructions sp3 - Leadership Thank You Letter sp3 Prescriptions: - Diclofenac Sodium 75 mg Oral Tablet Sustained Release - take 1 tablet ORAL route 2 times per day; 30 tablet; Refills: 0, Product sp3 Selection Permitted - Tramadol 50 mg Oral Tablet - take 1 tablet ORAL route every 8 hours as needed; 12 tablet; Refills: 0, sp3 Product Selection Permitted Signatures: Dispatcher [employer] EDMS Stephanie Toro MD MD sp3 Deann Lewis RN RN kc6 Mo Mendez RN RN ar8 Corrections: (The following items were deleted from the chart) 15:43 15:43 CBC+H.LAB.BRZ ordered. EDMS EDMS 15:43 15:43 COMPREHENSIVE METABOLIC PANEL+C.LAB.BRZ ordered. EDMS EDMS 15:43 15:43 FLUID CELL COUNT,BODY+H.LAB.BRZ ordered. EDMS EDMS 15:43 15:43 CSF Culture+BA.LAB.BRZ ordered. EDMS EDMS 15:43 15:43 CSF GLUCOSE+C.LAB.BRZ ordered. EDMS EDMS 15:43 15:43 CSF TOTAL PROTEIN+C.LAB.BRZ ordered. EDMS EDMS
[2024-11-23 02:43] VITALS: TEMP 97.6
[2024-11-23 02:47] VITALS: BP 173/96; O2SAT 93
== END 2024-11-22 18:51 | disposition home or self-care (01) ==
LOC: ER 15:04
PROC: 0H96XZZ Drainage of Back Skin, External Approach (ICD-10-PCS; principal; 2024-11-22)
DX: R51.9 Headache, unspecified (principal); I10 Essential (primary) hypertension; Z72.0 Tobacco use
CPT/HCPCS: 36415; 62270; 80053; 82945; 84157; 85025; 87070; 89050; 96374; 96375; 99285; J1171; J2405